=== PATIENT | male | born 1965 | race Two or more races ===

== ENCOUNTER 2021-06-02 15:08 | Emergency (ER) | payer MEDICAID, OTHER ==
[~2021-06-02] VITALS: Ht 188 cm; Wt 90.7 kg
[2021-06-02] MEDS ORDERED: SODIUM CHLORIDE 0.9% 1,000 ML IV ONE ×2 (15:30)
[2021-06-02 15:40] LABS: Basophils # (auto) 0.1 10 ^3/uL (0-0.2); Basophils % (auto) 0.9 % (0.0-2.0); Eosinophils # (auto) 0.2 10 ^3/uL (0-0.8); Eosinophils % (auto) 2.1 % (0.0-7.0); Hematocrit 47.6 % (41.0-53.0); Hemoglobin 15.4 g/dL (13.5-17.5); Lymphocytes # (auto) 3.8 10 ^3/uL (0.4-5.4); Lymphocytes % (auto) 37.2 % (10.0-50.0); Mean Corpuscular Hemoglobin 28.7 pg (28.0-32.0); Mean Corpuscular Hgb Conc. 32.4 g/dL (32.0-36.0); Mean Corpuscular Volume 88.5 fL (80.0-100.0); Monocytes # (auto) 0.7 10 ^3/uL (0-1.3); Monocytes % (auto) 6.7 % (0.0-12.0); Neutrophils # (auto) 5.5 10 ^3/uL (1.6-8.6); Neutrophils % (auto) 53.1 % (37.0-80.0); Red Blood Cells 5.37 10^6/uL (4.5-5.90); Red Cell Distribution Width 13.1 % (11.8-14.3); White Blood Cell 10.3 10^3/uL (4.4-10.8)
[2021-06-02 16:16] LABS: Calcium 9.3 mg/dL (8.5-10.1); Potassium 3.5 mmol/L (3.5-5.1)
[2021-06-02 16:29] LABS: Albumin 4.3 g/dL (3.4-5.0); BUN/Creatinine Ratio 7.6; Bilirubin, Total 0.3 mg/dL (0.2-1.0); Total Protein 7.9 g/dL (6.4-8.2)
[2021-06-02 17:17] VITALS: BP 118/76
== END 2021-06-02 17:43 | disposition home or self-care (01) ==
LOC: EDSEX 15:08 → EDBD 15:08 → ER 15:08
DX: G40.909 Epilepsy, unspecified, not intractable, without status epilepticus (principal); I10 Essential (primary) hypertension
CPT/HCPCS: 36415; 70450; 71045; 80053; 84484; 85025; 96360; 99285; J7030

== ENCOUNTER 2021-06-06 09:44 | Inpatient (IN) | payer MEDICAID ==
[~2021-06-06] VITALS: Ht 175.3 cm; Wt 97.2 kg
[2021-06-06] MEDS ORDERED: LORazepam 2MG/ML-1ML VIAL ONE (10:12)
[2021-06-06] MEDS ORDERED: LORazepam 2MG/ML-1ML VIAL IV ONE (10:30)
[2021-06-06 10:45] LABS: Urine Bacteria NONE SEEN /hpf (None Seen); Urine Blood Negative /uL (Negative); Urine Specific Gravity 1.021 (1.001-1.035); Urine WBC 3 /hpf (0 - 3)
[2021-06-06 10:46] LABS: Hematocrit 49.1 % (41.0-53.0); Hemoglobin 16.3 g/dL (13.5-17.5); Mean Corpuscular Hemoglobin 29.5 pg (28.0-32.0); Mean Corpuscular Hgb Conc. 33.1 g/dL (32.0-36.0); Mean Corpuscular Volume 88.9 fL (80.0-100.0); Red Blood Cells 5.52 10^6/uL (4.5-5.90); Red Cell Distribution Width 13.8 % (11.8-14.3)
[2021-06-06 10:59] LABS: Albumin 4.1 g/dL (3.4-5.0); Anion Gap 22 (5-15); Calcium 9.3 mg/dL (8.5-10.1); Carbon Dioxide 13 mmol/L (21-32); Chloride 102 mmol/L (98-107); Glucose 214 mg/dL (74-106); Potassium 3.7 mmol/L (3.5-5.1); Sodium 137 mmol/L (136-145)
[2021-06-06 11:03] LABS: INR 0.97 (0.9-1.15); Partial Thromboplastin Time 26.4 sec (23.6-33.0)
[2021-06-06 11:05] LABS: Alanine Aminotransferase 38 U/L (16-61); Alkaline Phosphatase 77 U/L (45-117); Aspartate Aminotransferase 25 U/L (15-37); BUN/Creatinine Ratio 6.4; Bilirubin, Total 0.5 mg/dL (0.2-1.0); Blood Urea Nitrogen 12 mg/dL (7-18); GFR African American 48 mL/min; GFR Non-African American 40 mL/min; Total Protein 8.1 g/dL (6.4-8.2)
[2021-06-06 11:10] LABS: Basophils % (manual) 0 (0.0-2.0); Blast Cells 0; Metamyelocytes % 0; Myelocytes % 0; Promyelocytes % 0; Reactive Lymphocytes 0
[2021-06-06 11:55] LABS: Band Neutrophils % (manual) 6; Eosinophils % (manual) 1 (0-7); Lymphocytes % (manual) 15 (10.0-50.0); Monocytes % (manual) 2 (0-12)
[2021-06-06] MEDS ORDERED: NITROGLYCERIN 0.4 MG SL TAB SL PRN (13:45)
[2021-06-06] MEDS ORDERED: MORPHINE SULFATE INJECTION 2 MG/ML SYRG IV PRN (13:45)
[2021-06-06] MEDS: SODIUM CHLORIDE 0.9% 1,000 ML IV SCH ×2 (14:10→23:49)
[2021-06-06] MEDS ORDERED: LORazepam 2MG/ML-1ML VIAL IV PRN ×2 (20:15)
[2021-06-06 21:01] LABS: Alcohol, Urine < 3.0 mg/dL (0-10); Amphetamine Screen, Urine NEGATIVE (NEGATIVE); Barbiturate Scree,Urine NEGATIVE (NEGATIVE); Benzodiazephine Screen, Urine NEGATIVE (NEGATIVE); Cannabinoid Screen, Urine NEGATIVE (NEGATIVE); Cocaine Screen, Urine NEGATIVE (NEGATIVE); Opiate Scree,Urine NEGATIVE (NEGATIVE); Phencyclidine Screen, Urine NEGATIVE (NEGATIVE)
[2021-06-06] MEDS ORDERED: levETIRAcetam 500 MG TAB PO SCH (22:00)
[2021-06-06] MEDS: levETIRAcetam 500 MG TAB PO SCH ×3 (22:00→22:34)
[2021-06-06] MEDS: levoFLOXacin 500MG 100 ML IV SCH (22:32)
[2021-06-07 01:10] VITALS: BP 145/82
[2021-06-07] MEDS ORDERED: HYDR50TA15 PO (02:36)
[2021-06-07] MEDS ORDERED: LEVE500T32 PO (02:36)
[2021-06-07 05:00] VITALS: BP 141/92
[2021-06-07] MEDS: ACETAMINOPHEN 325 MG TAB PO PRN ×4 (05:54→20:24)
[2021-06-07 06:27] LABS: Basophils # (auto) 0.1 10 ^3/uL (0-0.2); Basophils % (auto) 0.6 % (0.0-2.0); Eosinophils # (auto) 0.1 10 ^3/uL (0-0.8); Eosinophils % (auto) 0.5 % (0.0-7.0); Hematocrit 42.7 % (41.0-53.0); Lymphocytes # (auto) 2.4 10 ^3/uL (0.4-5.4); Lymphocytes % (auto) 16.8 % (10.0-50.0); Mean Corpuscular Hemoglobin 29.9 pg (28.0-32.0); Mean Corpuscular Volume 85.3 fL (80.0-100.0); Monocytes # (auto) 1.4 10 ^3/uL (0-1.3); Monocytes % (auto) 9.5 % (0.0-12.0); Neutrophils # (auto) 10.6 10 ^3/uL (1.6-8.6); Neutrophils % (auto) 72.6 % (37.0-80.0); Red Blood Cells 5.01 10^6/uL (4.5-5.90); Red Cell Distribution Width 13.4 % (11.8-14.3); White Blood Cell 14.6 10^3/uL (4.4-10.8)
[2021-06-07] MEDS: levoFLOXacin 500MG 100 ML IV SCH (09:35)
[2021-06-07] MEDS: levETIRAcetam 500 MG TAB PO SCH ×2 (09:35→21:44)
[2021-06-07 09:36] VITALS: BP 129/78
[2021-06-07] MEDS: SODIUM CHLORIDE 0.9% 1,000 ML IV SCH ×2 (09:45→21:44)
[2021-06-07 10:58] LABS: Potassium 3.8 mmol/L (3.5-5.1)
[2021-06-07 10:59] LABS: BUN/Creatinine Ratio 13.7; Calcium 8.9 mg/dL (8.5-10.1)
[2021-06-07 12:41] VITALS: BP 137/96
[2021-06-07 16:43] VITALS: BP 131/81
[2021-06-07] MEDS ORDERED: LISI2.5T47 PO (18:22)
[2021-06-07 22:25] VITALS: BP 130/86
[2021-06-08 05:24] VITALS: BP_SYST 138; BP_SYST 187; BP_DIAS 80; BP_DIAS 98
[2021-06-08] MEDS: SODIUM CHLORIDE 0.9% 1,000 ML IV SCH (05:45)
[2021-06-08 09:00] VITALS: BP 148/71
[2021-06-08] MEDS: levoFLOXacin 500MG 100 ML IV SCH (10:27)
[2021-06-08] MEDS: levETIRAcetam 500 MG TAB PO SCH (10:27)
[2021-06-08] MEDS: ACETAMINOPHEN 325 MG TAB PO PRN (10:40)
[2021-06-08 11:59] VITALS: BP 137/83
== END 2021-06-08 12:45 | disposition home or self-care (01) | DRG 53 ==
LOC: ER 09:44 → EDBD 09:44 → TELE 13:42 → TELE-WESTW 23:25
PROVIDERS: ADMIT Internal Medicine; ATTEND Internal Medicine
DX: G40.901 Epilepsy, unspecified, not intractable, with status epilepticus (principal); E11.22 Type 2 diabetes mellitus with diabetic chronic kidney disease; D72.829 Elevated white blood cell count, unspecified; F17.200 Nicotine dependence, unspecified, uncomplicated; I12.9 Hypertensive chronic kidney disease with stage 1 through stage 4 chronic kidney disease, or unspecified chronic kidney disease; Z83.3 Family history of diabetes mellitus; N18.30 Chronic kidney disease, stage 3 unspecified; X58.XXXA Exposure to other specified factors, initial encounter; Z79.899 Other long term (current) drug therapy; Z82.49 Family history of ischemic heart disease and other diseases of the circulatory system; Z79.84 Long term (current) use of oral hypoglycemic drugs; Z20.822 Contact with and (suspected) exposure to COVID-19
CPT/HCPCS: 36415; 70450; 70551; 71045; 80048; 80053; 80307; 81001; 82542; 83880; 84484; 85007; 85025; 85027; 85610; 85730; 87040; 87426; 93005; 95819; 96361; 96365; 96367; 96375; 99291; G0378; J1956; J7060

== ENCOUNTER 2022-07-27 18:27 | Emergency (ER) | payer MEDICAID ==
[~2022-07-27] VITALS: Ht 182.9 cm; Wt 97.8 kg
[~2022-07-27 18:27] MED LIST: HYDR50TA15 PO; LEVE500T32 PO; LISI2.5T47 PO
[2022-07-27 19:10] VITALS: BP 146/100
[2022-07-27] MEDS ORDERED: IBUP800T27 PO (21:40)
[2022-07-27] MEDS ORDERED: OSEL75CA5 PO (21:40)
[2022-07-27] MEDS ORDERED: IBUPROFEN 800 MG TAB PO ONE (21:45)
== END 2022-07-27 21:50 | disposition home or self-care (01) ==
LOC: ER 18:27
DX: J10.1 Influenza due to other identified influenza virus with other respiratory manifestations (principal); I10 Essential (primary) hypertension; R51.9 Headache, unspecified; Z20.822 Contact with and (suspected) exposure to COVID-19
CPT/HCPCS: 36415; 87426; 87804